=== PATIENT | female | born 1990 | race Caucasian/White ===

== ENCOUNTER 2019-03-20 10:00 | Emergency (ER) | payer MEDICAID ==
[2019-03-20] MEDS ORDERED: Acetaminophen 325 MG Tab PO ONE (10:30)
--- NOTE | 2019-03-20 10:37 | EDM.PDOC ---
ED HPI GENERAL MEDICAL PROBLEM - General Chief Complaint: Headache Time Seen by Provider: 03/20/19 10:15 Source of Information: Reports: Patient History Limitations: Reports: No Limitations - History of Present Illness INITIAL COMMENTS - FREE TEXT/NARRATIVE: Patient is a 28 year old female who presents to the E.D. complaining of mild bi- temporal headache that waxes and wanes in fashion. Headache started last night. States it started after having a intermittent episode of dizziness while sitting with her son. States she was mildly nauseated and became slightly sweaty. States symptoms went away with standing. States short period thereafter developed this mild headache. Denies vision changes, room spinning sensation, or any focal neurologic abnormalities. States she has had intermittent sinus pressure and ear pain. Denies any recent trauma to her head, fever, abdominal pain, stiff neck, or any additional complaints. She is 21 wks preganant and takes vitamins. She has not taken any OTC pain medications. 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 Social & Family History - Tobacco Use Smoking Status *Q: Current Every Day Smoker Years of Tobacco use: 10 Packs/Tins Daily: 0.5 - Caffeine Use Caffeine Use: Reports: Coffee - Recreational Drug Use Recreational Drug Use: No ED ROS GENERAL - Review of Systems Review Of Systems: Comprehensive ROS is negative, except as noted in HPI. - Physical Exam Exam: See Below Exam Limited By: No Limitations General Appearance: Alert, WD/WN, No Apparent Distress Eye Exam: Bilateral Eye: EOMI, Normal Inspection, Nystagmus (None noted), PERRL Ears: Normal External Exam, Normal Canal, Hearing Grossly Normal, Normal TMs Nose: Normal Inspection, Normal Mucosa, No Blood Throat/Mouth: Normal Inspection, Normal Lips, Normal Oropharynx, Normal Voice, No Airway Compromise Head Exam: Atraumatic, Normocephalic Neck: Normal Inspection, Supple, Non-Tender, Full Range of Motion Respiratory/Chest: No Respiratory Distress, Lungs Clear, Normal Breath Sounds, No Accessory Muscle Use, Chest Non-Tender Cardiovascular: Normal Peripheral Pulses, Regular Rate, Rhythm, No Murmur GI/Abdominal: Normal Bowel Sounds, Soft, Non-Tender, Distended Neuro Exam (Abbreviated): Alert, Oriented, CN II-XII Intact, Normal Cognition, Normal Gait, No Motor/Sensory Deficits, Other (No facial droop, slurred speech, tongue deviation, weakness discrepancy upper and lower extremities. Finger to nose and rapid alternating movements are intact. Gait is normal.) Back Exam: Normal Inspection, Full Range of Motion Extremities: Normal Inspection, Normal Range of Motion, Non-Tender, No Pedal Edema Psychiatric: Normal Affect, Normal Mood Skin Exam: Warm, Dry, Intact, Normal Color Course - Vital Signs Last Recorded V/S: Last Vital Signs Temp 97.6 F 03/20/19 10:09 Pulse 84 03/20/19 10:09 Resp 16 03/20/19 10:09 BP 130/82 03/20/19 10:09 Pulse Ox 100 03/20/19 10:09 - Orders/Labs/Meds Meds: Medications Discontinued Medications Generic Name Dose Route Start Last Admin Trade Name Freq PRN Reason Stop Dose Admin Acetaminophen 975 mg 03/20/19 10:30 03/20/19 10:39 Tylenol PO 03/20/19 10:31 975 mg NOW ONE Administration - Re-Assessments/Exams Free Text/Narrative Re-Assessment/Exam: On exam patient is alert and oriented 3 she is pleasant AND appropriate does not appear in distress. Vital signs are stable. Orthostatic vitals were negative. Laying blood pressure 113/67 with a heart rate of 96, sitting blood pressure 125/76 with heart rate 77, standing blood pressure 134/79, heart rate 89. She does have bitemporal headache described as throbbing sensation mild in nature with no vision changes and/or focal neurological deficits. This did come on after experiencing some mild dizziness, nausea, and also diaphoresis. Symptoms completely resolved minus the onset of a headache. 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 She does have some mild pressure to her ears. She denies any sinus congestion, runny nose, postnasal drip or sore throat. There is no chest pain, shortness of breath, abdominal pain, vomiting, dysuria, hematuria, and/or vaginal bleeding. She is 21 weeks . She's had regular follow-up with Dr. Guerra with no concerning findings. She's been eating and drinking as usual. At this point we discussed getting labs and also CT of the head. I do not believe a CT of the head is required at this point. The headache was gradual onset and has not been described as the worst headache of her life. She has no focal neurological deficits. Patient agrees. In addition i do not believe labs are required as well. She has no history of preeclampsia. Vitals are stable. I have ordered Tylenol 975 mg by mouth 1. 03/20/19 11:28 Reassessment, patient sitting upright with lights on in no acute distress. She states that Tylenol has not really improved her headache. States she just wants to go home and go to sleep. She did not sleep well last night and is very tired. She offers no additional complaints. Vitals are stable. She refused any additional treatment options. Return precautions discussed with patient. She will followup with PCP as needed this wk. Discharge instructions as documented. Departure - Departure Time of Disposition: 11:40 Disposition: Home, Self-Care 01 Condition: Good Clinical Impression: Headache in front of head - Discharge Information Instructions: General Headache Without Cause, [id number] Referrals: Teresa Rodriguez MD [Primary Care Provider] - Forms: ED Department Discharge Additional Instructions: Suggest going home and find a dark room to go to sleep and with no distractions. Utilize Tylenol 650 mg 4 times a day for pain. Push the fluids. Follow-up with PCP this week as needed. Return to the ED if you develop any new or worsening symptoms. Sepsis Event Note - Evaluation Sepsis Screening Result: No Definite Risk - Focused Exam Date Exam was Performed: 03/24/19 Time Exam was Performed: 19:48
== END 2019-03-20 12:04 | disposition home or self-care (01) ==
LOC: JD.OBCHECK 10:00 → JD.ED 10:00 → EDSTATUS 10:02 → JD.ED 12:04
DX: R51 Headache (principal); F17.210 Nicotine dependence, cigarettes, uncomplicated; Z88.6 Allergy status to analgesic agent
CPT/HCPCS: 99283; A9270; 99282

== ENCOUNTER 2019-07-12 02:55 | Inpatient (IN) | payer MEDICAID ==
[~2019-07-12 02:55] MED LIST: Bupivacaine 0.25% 10 ML SDV ONE
[2019-07-12] MEDS ORDERED: Sodium Chloride 0.9% 10 ML Syringe FLUSH PRN (03:33)
[2019-07-12] MEDS ORDERED: Oxytocin/Lactated Ringers 10 UNIT/1,000 ML BAG IV SCH (03:45)
[2019-07-12] MEDS: Lactated Ringers 1,000 ML IV SCH ×3 (03:59→06:06)
[2019-07-12] MEDS ORDERED: ePHEDrine 50 MG/ML SDV IVPUSH PRN (04:50)
[2019-07-12] MEDS ORDERED: fentaNYL 100 MCG/2 ML SDV EPIDUR PRN (04:50)
[2019-07-12] MEDS ORDERED: diphenhydrAMINE 50 MG/ML SDV IVPUSH PRN (04:50)
[2019-07-12] MEDS ORDERED: Bupivacaine/fentaNYL/NS 100 ML Bag EPIDUR PRN (04:50)
--- NOTE | 2019-07-12 05:18 | PCM.PREANE ---
Preanesthetic Assessment - Procedure Proposed Procedure: guru - Anesthesia/Transfusion/Family Hx Anesthesia History: Prior Anesthesia Without Reaction Family History of Anesthesia Reaction: No Transfusion History: No Prior Transfusion(s) - Review of Systems General: No Symptoms Pulmonary: No Symptoms Cardiovascular: No Symptoms Gastrointestinal: No Symptoms Neurological: No Symptoms Other: Reports: Anxiety - Physical Assessment Vital Signs: Last Vital Signs Temp 98.5 F 07/12/19 03:11 Pulse 83 07/12/19 03:11 Resp 16 07/12/19 03:11 BP 127/80 07/12/19 03:11 Pulse Ox 100 07/12/19 03:11 Height: 5 ft 3 in Weight: 76.204 kg ASA Class: 2 Mental Status: Alert & Oriented x3 Airway Class: Mallampati = 1 Dentition: Reports: Normal Dentition Thyro-Mental Finger Breadths: 3 Mouth Opening Finger Breadths: 3 ROM/Head Extension: Full Lungs: Clear to Auscultation, Normal Respiratory Effort Cardiovascular: Regular Rate, Regular Rhythm, No Murmurs - Lab Values: Laboratory Last Values WBC 12.26 K/mm3 (3.98-10.04) H 07/12/19 03:48 RBC 3.86 M/mm3 (3.98-5.22) L 07/12/19 03:48 Hgb 12.6 gm/dl (11.2-15.7) 07/12/19 03:48 Hct 37.5 % (34.1-44.9) 07/12/19 03:48 MCV 97.2 fl (79.4-94.8) H 07/12/19 03:48 MCH 32.6 pg (25.6-32.2) H 07/12/19 03:48 MCHC 33.6 g/dl (32.2-35.5) 07/12/19 03:48 RDW Std Deviation 45.1 fL (36.4-46.3) 07/12/19 03:48 Plt Count 348 K/mm3 (182-369) 07/12/19 03:48 MPV 9.8 fl (9.4-12.3) 07/12/19 03:48 Neut % (Auto) 67.8 % (34.0-71.1) 07/12/19 03:48 Lymph % (Auto) 24.0 % (19.3-51.7) 07/12/19 03:48 Stone % (Auto) 6.2 % (4.7-12.5) 07/12/19 03:48 Eos % (Auto) 1.6 (0.7-5.8) 07/12/19 03:48 Baso % (Auto) 0.2 % (0.1-1.2) 07/12/19 03:48 Neut # (Auto) 8.31 K/mm3 (1.56-6.13) H 07/12/19 03:48 Lymph # (Auto) 2.94 K/mm3 (1.18-3.74) 07/12/19 03:48 Stone # (Auto) 0.76 K/mm3 (0.24-0.36) H 07/12/19 03:48 Eos # (Auto) 0.20 K/mm3 (0.04-0.36) 07/12/19 03:48 Baso # (Auto) 0.02 K/mm3 (0.01-0.08) 07/12/19 03:48 - Allergies Allergies/Adverse Reactions: Allergies Allergy/AdvReac Type Severity Reaction Status Date / Time acetaminophen [From Vicodin] Allergy Hives Verified 07/12/19 03:11 hydrocodone [From Vicodin] Allergy Hives Verified 07/12/19 03:11 - Blood Blood Available: No - Acknowledgements Anesthesia Type Planned: Epidural Pt an Appropriate Candidate for the Planned Anesthesia: Yes Alternatives and Risks of Anesthesia Discussed w Pt/Guardian: Yes Pt/Guardian Understands and Agrees with Anesthesia Plan: Yes PreAnesthesia Questionnaire Cardiovascular History: Reports: None Respiratory History: Reports: None Gastrointestinal History: Reports: GERD 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, Musculoskeletal History: Reports: None Neurological History: Reports: None Psychiatric History: Reports: Anxiety Endocrine/Metabolic History: Reports: None Hematologic History: Reports: None Immunologic History: Reports: None Oncologic (Cancer) History: Reports: None Dermatologic History: Reports: None - Infectious Disease History Infectious Disease History: Reports: Chicken Pox - Past Surgical History HEENT Surgical History: Reports: Oral Surgery Female Surgical History: Reports: Other (See Below) Other Female Surgeries/Procedures: Pt had laparoscopic procedure to remove cyst on left fallopian tube. - SUBSTANCE USE Smoking Status *Q: Current Every Day Smoker Tobacco Use Within Last Twelve Months: Cigarettes Second Hand Smoke Exposure: Yes Days Per Week of Alcohol Use: 0 Recreational Drug Use History: No - HOME MEDS Home Medications: Home Meds Prenat 115/Iron Fum/Folic/Dss [ 19 Tablet] 1 each PO DAILY 03/20/19 [ History] Citalopram Hydrobromide [Celexa] 20 mg PO 07/12/19 [History] Omeprazole 20 mg PO 07/12/19 [History] - CURRENT (IN HOUSE) MEDS Current Meds: Current Medications Diphenhydramine HCl (Benadryl) 25 mg IVPUSH Q6H PRN PRN Reason: pruritis Ephedrine Sulfate (Ephedrine Sulfate) 5 mg IVPUSH ASDIRECTED PRN PRN Reason: Hypotension Fentanyl (Sublimaze) 100 mcg EPIDUR Q3H PRN PRN Reason: Pain Last Admin: 07/12/19 05:01 Dose: 100 mcg Fentanyl/Bupivacaine HCl (Fentanyl/Bupivacaine/Ns 2 Mcg-0.125% 100 Ml) 100 ml EPIDUR ASDIRECTED PRN PRN Reason: Pain Last Admin: 07/12/19 05:02 Dose: 100 ml Lactated Ringer's (Ringers, Lactated) 1,000 mls @ 100 mls/hr IV ASDIRECTED RADHA Last Admin: 07/12/19 04:40 Dose: 999 mls/hr Oxytocin/Lactated Ringer's (Pitocin In Lr 10 Units/1,000 Ml) 10 unit in 1,000 mls @ 500 mls/hr IV .CONTINUOUS RADHA Sodium Chloride (Saline Flush) 10 ml FLUSH ASDIRECTED PRN PRN Reason: Keep Vein Open
--- NOTE | 2019-07-12 07:17 | PCM.LDHP ---
L&D History of Present Illness - General Date of Service: 07/12/19 Admit Problem/Dx: Patient Status Order with Admit Dx/Problem 07/12/19 03:34 Patient Status [ADT] Routine Admission Diagnosis/Problem Admission Diagnosis/Problem Source of Information: Patient History Limitations: Reports: No Limitations - History of Present Illness Introduction:: Patient is a 29 y/o at 37 4/7 wks who presented in early AM in labor. When first presented was 4 cm. Now comfortable with epidural. Had SROM about an hour ago and was noted to be 6 cm dilated. 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, : 3 Para: 2 LMP (Approximate): Psychiatric History: Reports: Anxiety - Past Surgical History HEENT Surgical History: Reports: Oral Surgery Female Surgical History: Reports: Cystectomy (left) Social & Family History - Tobacco Use Smoking Status *Q: Current Every Day Smoker Years of Tobacco use: 10 Packs/Tins Daily: 0.2 Second Hand Smoke Exposure: Yes - Caffeine Use Caffeine Use: Reports: None - Alcohol Use Alcohol Use History: No Days Per Week of Alcohol Use: 0 - Recreational Drug Use Recreational Drug Use: No H&P Review of Systems - Review of Systems: Review Of Systems: See Below General: Reports: No Symptoms Pulmonary: Reports: No Symptoms Cardiovascular: Reports: No Symptoms Gastrointestinal: Reports: No Symptoms Genitourinary: Reports: No Symptoms Musculoskeletal: Reports: No Symptoms Psychiatric: Reports: No Symptoms Neurological: Reports: No Symptoms L&D Exam - Exam Exam: See Below - Vital Signs Vital Signs: Last Vital Signs Temp 36.9 C 07/12/19 03:11 Pulse 83 07/12/19 03:11 Resp 16 07/12/19 03:11 BP 127/80 07/12/19 03:11 Pulse Ox 100 07/12/19 03:11 Weight: 76.204 kg - OB Specific Contraction Intensity: Moderate to Strong Movement: Active Heart Tones: Present Heart Tones per Min: 130 Heart Rate (FHR) Variability: Moderate (6-25 bmp) Presentation: Vertex - Exam General: Alert, Oriented, Cooperative Lungs: Clear to Auscultation, Normal Respiratory Effort Cardiovascular: Regular Rate, Regular Rhythm GI/Abdominal Exam: Soft, Non-Tender Genitourinary: Normal external exam Extremities: Normal Inspection Skin: Warm, Dry, Intact - Patient Data Lab Results Last 24 hrs: Laboratory Results - last 24 hr 07/12/19 Range/Units 03:48 WBC 12.26 H (3.98-10.04) K/mm3 RBC 3.86 L (3.98-5.22) M/mm3 Hgb 12.6 (11.2-15.7) gm/dl Hct 37.5 (34.1-44.9) % MCV 97.2 H (79.4-94.8) fl MCH 32.6 H (25.6-32.2) pg MCHC 33.6 (32.2-35.5) g/dl RDW Std Deviation 45.1 (36.4-46.3) fL Plt Count 348 (182-369) K/mm3 MPV 9.8 (9.4-12.3) fl Neut % (Auto) 67.8 (34.0-71.1) % Lymph % (Auto) 24.0 (19.3-51.7) % Harrison % (Auto) 6.2 (4.7-12.5) % Eos % (Auto) 1.6 (0.7-5.8) Baso % (Auto) 0.2 (0.1-1.2) % Neut # (Auto) 8.31 H (1.56-6.13) K/mm3 Lymph # (Auto) 2.94 (1.18-3.74) K/mm3 Harrison # (Auto) 0.76 H (0.24-0.36) K/mm3 Eos # (Auto) 0.20 (0.04-0.36) K/mm3 Baso # (Auto) 0.02 (0.01-0.08) K/mm3 Result Diagrams: 07/12/19 03:48 - Problem List (1) 37 weeks gestation of SNOMED Code(s): 61588164 ICD Code: Z3A.37 - 37 WEEKS GESTATION OF Status: Acute Current Visit: Yes (2) Normal labor SNOMED Code(s): 18558336 ICD Code: O80 - ENCOUNTER FOR FULL-TERM UNCOMPLICATED DELIVERY; Z37.9 - OUTCOME OF DELIVERY, UNSPECIFIED Status: Acute Current Visit: Yes Problem List Initiated/Reviewed/Updated: Yes Orders Last 24hrs: Active Orders 24 hr Category Date Time Status Patient Status [ADT] Routine ADT 07/12/19 03:34 Active Activity as Tolerated [RC] PFP Care 07/12/19 03:34 Active Communication Order [RC] ASDIRECTED Care 07/12/19 03:34 Active Heart Tones [RC] ASDIRECTED Care 07/12/19 03:34 Active Non Stress Test [RC] PER UNIT ROUTINE Care 07/12/19 03:34 Active Notify Provider [RC] ASDIRECTED Care 07/12/19 04:50 Active Notify Provider [RC] PFP Care 07/12/19 03:34 Active Notify Provider [RC] PRN Care 07/12/19 03:34 Active Peripheral IV Care [RC] . DIRECTED Care 07/12/19 03:34 Active Urinary Catheter Assessment [RC] ASDIRECTED Care 07/12/19 05:32 Active Urinary Catheter Insertion [Insert Urinary Catheter] [ Care 07/12/19 05:45 Ordered OM.PC] Q24H Vital Signs [RC] PER UNIT ROUTINE Care 07/12/19 03:34 Active Regular Diet [DIET] Diet 07/12/19 Breakfast Active BLOOD BANK HOLD SPECIMEN [BBK] Routine Lab 07/12/19 03:33 Ordered RAPID PLASMA REAGIN,RPR [CHEM] Routine Lab 07/12/19 03:48 Received Bupivacaine/fentaNYL/NS [fentaNYL/Bupivacaine/NS 2 MCG- Med 07/12/19 04:50 Active 0.125% 100 ML] 100 ml EPIDUR ASDIRECTED PRN Lactated Ringers [Ringers, Lactated] 1,000 ml Med 07/12/19 03:45 Active IV ASDIRECTED Oxytocin/Lactated Ringers [Pitocin in LR 10 Units/1,000 Med 07/12/19 03:45 Active ML] 10 unit in 1,000 ml IV .CONTINUOUS Sodium Chloride 0.9% [Saline Flush] Med 07/12/19 03:33 Active 10 ml FLUSH ASDIRECTED PRN diphenhydrAMINE [Benadryl] Med 07/12/19 04:50 Active 25 mg IVPUSH Q6H PRN ePHEDrine [ePHEDrine sulfate] Med 07/12/19 04:50 Active 5 mg IVPUSH ASDIRECTED PRN fentaNYL [Sublimaze] Med 07/12/19 04:50 Active 100 mcg EPIDUR Q3H PRN Electronic Heart Tones Ext w TOCO [WOMSER] Oth 07/12/19 03:34 Ordered Routine Electronic Heart Tones Internal [WOMSER] Per Unit Oth 07/12/19 03:34 Ordered Routine Peripheral IV Insertion Adult [OM.PC] Routine Oth 07/12/19 03:34 Ordered Resuscitation Status Routine Resus Stat 07/12/19 03:33 Ordered Medication Orders Diphenhydramine HCl (Benadryl) 25 mg IVPUSH Q6H PRN PRN Reason: pruritis Ephedrine Sulfate (Ephedrine Sulfate) 5 mg IVPUSH ASDIRECTED PRN PRN Reason: Hypotension Fentanyl (Sublimaze) 100 mcg EPIDUR Q3H PRN PRN Reason: Pain Last Admin: 07/12/19 05:01 Dose: 100 mcg Fentanyl/Bupivacaine HCl (Fentanyl/Bupivacaine/Ns 2 Mcg-0.125% 100 Ml) 100 ml EPIDUR ASDIRECTED PRN PRN Reason: Pain Last Admin: 07/12/19 05:02 Dose: 100 ml Lactated Ringer's (Ringers, Lactated) 1,000 mls @ 100 mls/hr IV ASDIRECTED RADHA Last Admin: 07/12/19 06:06 Dose: 100 mls/hr Infusion: 07/12/19 06:06 Dose: 100 mls/hr Infusion: 07/12/19 05:33 Dose: 100 mls/hr Admin: 07/12/19 04:40 Dose: 999 mls/hr Infusion: 07/12/19 04:40 Dose: 999 mls/hr Admin: 07/12/19 03:59 Dose: 999 mls/hr Oxytocin/Lactated Ringer's (Pitocin In Lr 10 Units/1,000 Ml) 10 unit in 1,000 mls @ 500 mls/hr IV .CONTINUOUS RADHA Sodium Chloride (Saline Flush) 10 ml FLUSH ASDIRECTED PRN PRN Reason: Keep Vein Open Assessment/Plan Comment:: * Labs done and normal * GBS negative * Comfortable with epidural in place * Anticipate
--- NOTE | 2019-07-12 08:28 | PCM.DEL ---
L & D Note - General Info Date of Service: 07/12/19 - Delivery Note Labor: Spontaneous Delivery Outcome: Livebirth Delivery Method: Spontaneous Vaginal Delivery-Single Delivery Mode: Spontaneous Presentation: Right Occiput Anterior (YIFAN) Nuchal Cord: None Anesthesia Type: Epidural Amniotic Fluid Description: Clear Episiotomy Type: None Laceration: None Placenta: Intact, Spontaneous Cord: 3 Vessels Estimated Blood Loss: 100 Resuscitation Needed: Yes Hodge: Bulb Syringe, Stimulated, Warmed, [place] Used, Warmer Used Delivery Comments (Free Text/Narrative):: Patient found to be complete and began pushing. With maternal pushing effort head delivered from an YIFAN presentation. No nuchal cord present. With gentle downward traction the shoulders and body delivered. Infant placed on maternal abdomen. Cord clamped and cut. Cord blood obtained. Placenta allowed time to separate and expelled intact. Inspection of the perineum showed no lacerations - General Info Date of Service: 07/12/19 - Patient Data Vitals - Most Recent: Last Vital Signs Temp 36.9 C 07/12/19 03:11 Pulse 83 07/12/19 03:11 Resp 16 07/12/19 03:11 BP 127/80 07/12/19 03:11 Pulse Ox 100 07/12/19 03:11 Weight - Most Recent: 76.204 kg I&O - Last 24 Hours: Intake & Output 07/11/19 07/12/19 07/12/19 22:59 06:59 14:59 Intake Total 1999 Balance 1999 - Problem List & Annotations (1) Vaginal delivery SNOMED Code(s): 151861986 Code(s): O80 - ENCOUNTER FOR FULL-TERM UNCOMPLICATED DELIVERY Status: Acute Current Visit: Yes (2) 37 weeks gestation of SNOMED Code(s): 27913871 Code(s): Z3A.37 - 37 WEEKS GESTATION OF Status: Acute Current Visit: Yes (3) Normal labor SNOMED Code(s): 59199509 Code(s): O80 - ENCOUNTER FOR FULL-TERM UNCOMPLICATED DELIVERY; Z37.9 - OUTCOME OF DELIVERY, UNSPECIFIED Status: Acute Current Visit: Yes - Problem List Review Problem List Initiated/Reviewed/Updated: Yes - My Orders Last 24 Hours: My Active Orders 07/12/19 03:33 BLOOD BANK HOLD SPECIMEN [BBK] Routine Sodium Chloride 0.9% [Saline Flush] 10 ml FLUSH ASDIRECTED PRN Resuscitation Status Routine 07/12/19 03:34 Patient Status [ADT] Routine Activity as Tolerated [RC] PFP Communication Order [RC] ASDIRECTED Heart Tones [RC] ASDIRECTED Non Stress Test [RC] PER UNIT ROUTINE Notify Provider [RC] PFP Notify Provider [RC] PRN Peripheral IV Care [RC] . DIRECTED Vital Signs [RC] PER UNIT ROUTINE Electronic Heart Tones Ext w TOCO [WOMSER] Routine Electronic Heart Tones Internal [WOMSER] Per Unit Routine Peripheral IV Insertion Adult [OM.PC] Routine 07/12/19 03:45 Lactated Ringers [Ringers, Lactated] 1,000 ml IV ASDIRECTED Oxytocin/Lactated Ringers [Pitocin in LR 10 Units/1,000 ML] 10 unit in 1,000 ml IV .CONTINUOUS 07/12/19 03:48 RAPID PLASMA REAGIN,RPR [CHEM] Routine 07/12/19 05:32 Urinary Catheter Assessment [RC] ASDIRECTED 07/12/19 05:45 Urinary Catheter Insertion [Insert Urinary Catheter] [OM.PC] Q24H 07/12/19 08:23 Patient Status Manage Transfer [TRANSFER] Routine 07/12/19 08:30 Citalopram Hydrobromide [Celexa] DOSE UNIT RTE FREQ 07/12/19 Breakfast Regular Diet [DIET] - Assessment Assessment:: PPD#0 - Plan Plan:: * Routine cares * Bottle feeding * Discharge home in 1-2 days
[2019-07-12] MEDS ORDERED: Benzocaine/Menthol 20%-0.5% Spray 56 GM Canister TOP PRN (09:01)
[2019-07-12] MEDS ORDERED: Witch Hazel Medicated Pads 40/Jar TOP PRN (09:01)
[2019-07-12] MEDS ORDERED: Docusate Sodium 100 MG Cap PO PRN (09:01)
[2019-07-12] MEDS: Ibuprofen 600 MG Tab PO PRN ×2 (14:54→21:02)
[2019-07-12] MEDS: Acetaminophen 325 MG Tab PO PRN (18:39)
[2019-07-12] MEDS ORDERED: Calcium Carbonate 500 MG Tab.Chew PO PRN (20:51)
[2019-07-13] MEDS: Ibuprofen 600 MG Tab PO PRN (04:30)
--- NOTE | 2019-07-13 07:35 | PCM.DCSUM1 ---
Discharge Summary - Hospital Course Free Text/Narrative:: Anil 29-year-old 3 now para 3003 white female is admitted early on at 37-4/7 weeks gestational age in active labor. She progressed quickly , had spontaneous rupture membranes with resultant clear amniotic fluid. A viable conner without problems. patient is doing well. She is voiding well, ambulating without concerns . She is desiring discharge home. Diagnosis: Stroke: No - Discharge Data Discharge Date: 07/13/19 Discharge Disposition: Home, Self-Care 01 Condition: Good - Referral to Home Health Primary Care Physician: Teresa Rodriguez MD - Patient Instructions Diet: Regular Diet as Tolerated Activity: As Tolerated (No intercourse or tampons still bleeding resolves) Driving: May Drive Today Showering/Bathing: May Shower (May take a bath) Notify Provider of: Fever, Increased Pain, Swelling and Redness, Nausea and/or Vomiting - Discharge Plan Home Medications: Home Meds Prenat 115/Iron Fum/Folic/Dss [ 19 Tablet] 1 each PO DAILY 03/20/19 [ History] Citalopram Hydrobromide [Celexa] 20 mg PO 07/12/19 [History] Acetaminophen [Tylenol] 650 mg PO Q4H PRN tablet 07/13/19 [Rx] Ibuprofen [Motrin] 600 mg PO Q6H PRN tablet 07/13/19 [Rx] Patient Handouts: Steps to Quit Smoking Referrals: Teresa Rodriguez MD [Primary Care Provider] - (The patient is to call [facility] for an appointment for follow-up.) - Discharge Summary/Plan Comment DC Time >30 min.: No Discharge Summary/Plan Comment: Discharge instructions: 1. Discharge home 2. Diet, activity and follow-up discussed with patient. 3. Precautions given concern increased pain, bleeding, temperature, signs/ symptoms of DVT/PE. 4. Medications per home medication was printed, discussed with and given to the patient. 5. Patient is to call [facility] for follow-up appointment with Dr. Rodriguez. Diagnosis: Term -delivered Condition: Good - Patient Data Vitals - Most Recent: Last Vital Signs Temp 36.4 C 07/13/19 05:00 Pulse 71 07/13/19 05:00 Resp 15 07/13/19 05:00 BP 110/69 07/13/19 05:00 Pulse Ox 100 07/13/19 05:00 Weight - Most Recent: 76.204 kg Lab Results - Last 24 hrs: Laboratory Results - last 24 hr 07/12/19 Range/Units 03:48 RPR Non-reactive (NONREACTIVE) Med Orders - Current: Current Medications Acetaminophen (Tylenol) 650 mg PO Q4H PRN PRN Reason: mild pain or fever Last Admin: 07/12/19 18:39 Dose: 650 mg Benzocaine/Menthol (Dermoplast Pain Relief [place]) 0 gm TOP ASDIRECTED PRN PRN Reason: Perineal Comfort Measure Calcium Carbonate/Glycine (Tums) 1,000 mg PO Q2HR PRN PRN Reason: Indigestion Last Admin: 07/12/19 21:27 Dose: 1,000 mg Docusate Sodium (Colace) 100 mg PO BID PRN PRN Reason: Constipation Ibuprofen (Motrin) 600 mg PO Q6H PRN PRN Reason: Mild pain or fever Last Admin: 07/13/19 04:30 Dose: 600 mg Witch [place] (Tucks) 1 pad TOP ASDIRECTED PRN PRN Reason: Perineal Comfort Measure Discontinued Medications Bupivacaine HCl (Sensorcaine-Mpf 0.25%) 10 ml .ROUTE .STK-MED ONE Stop: 07/12/19 00:01 Diphenhydramine HCl (Benadryl) 25 mg IVPUSH Q6H PRN PRN Reason: pruritis Ephedrine Sulfate (Ephedrine Sulfate) 5 mg IVPUSH ASDIRECTED PRN PRN Reason: Hypotension Fentanyl (Sublimaze) 100 mcg EPIDUR Q3H PRN PRN Reason: Pain Last Admin: 07/12/19 05:01 Dose: 100 mcg Fentanyl/Bupivacaine HCl (Fentanyl/Bupivacaine/Ns 2 Mcg-0.125% 100 Ml) 100 ml EPIDUR ASDIRECTED PRN PRN Reason: Pain Last Admin: 07/12/19 05:02 Dose: 100 ml Lactated Ringer's (Ringers, Lactated) 1,000 mls @ 100 mls/hr IV ASDIRECTED RADHA Last Admin: 07/12/19 06:06 Dose: 100 mls/hr Oxytocin/Lactated Ringer's (Pitocin In Lr 10 Units/1,000 Ml) 10 unit in 1,000 mls @ 500 mls/hr IV .CONTINUOUS RADHA Last Admin: 07/12/19 08:06 Dose: 500 mls/hr Sodium Chloride (Saline Flush) 10 ml FLUSH ASDIRECTED PRN PRN Reason: Keep Vein Open
[2019-07-13] MEDS: Acetaminophen 325 MG Tab PO PRN (08:10)
--- NOTE | 2019-07-13 13:39 | PCM48HPAN ---
Post Anesthesia Note - EVALUATION WITHIN 48HRS OF ANESTHETIC Vital Signs in Normal Range: Yes Patient Participated in Evaluation: Yes Respiratory Function Stable: Yes Airway Patent: Yes Cardiovascular Function Stable: Yes Hydration Status Stable: Yes Pain Control Satisfactory: Yes Nausea and Vomiting Control Satisfactory: Yes Mental Status Recovered: Yes Vital Signs: Last Vital Signs Temp 97.8 F 07/13/19 09:00 Pulse 64 07/13/19 09:00 Resp 14 07/13/19 09:00 BP 123/70 07/13/19 09:00 Pulse Ox 99 07/13/19 09:00 - COMMENTS/OBSERVATIONS Free Text/Narrative:: Patient is on her day 1. Stated understanding about possible backaches following epidural anesthesia. Mentions having some minor back soreness at this time. Patient also reported having an topical reaction to the tape, used to secure epidural dressing, but it has already subsided. Explanation given about importance of avoiding back straining. Denies any headache or lightheadedness at this time. Comfortable now. Ambulating, no difficulty urinating.
== END 2019-07-13 10:40 | disposition home or self-care (01) | DRG 807 ==
LOC: JD.OBCHECK 02:55 → JD.OB 03:41 → OBSVTOIN 08:05 → JD.OB 08:06 → JD.MS 08:06
PROVIDERS: ADMIT Obstetrics & Gynecology; ATTEND Obstetrics & Gynecology
PROC: 10E0XZZ Delivery of Products of Conception, External Approach (ICD-10-PCS; principal; 2019-07-12)
PROC: 3E0R3BZ Introduction of Anesthetic Agent into Spinal Canal, Percutaneous Approach (ICD-10-PCS; 2019-07-12)
DX: O99.62 Diseases of the digestive system complicating childbirth (principal); Z37.0 Single live birth; K21.9 Gastro-esophageal reflux disease without esophagitis; O99.344 Other mental disorders complicating childbirth; Z3A.37 37 weeks gestation of pregnancy; F41.9 Anxiety disorder, unspecified; O99.334 Smoking (tobacco) complicating childbirth; F17.200 Nicotine dependence, unspecified, uncomplicated
CPT/HCPCS: 36415; 51702; 59025; 59409; 85025; 86592; A9270-GY; J2590; J3010; J3490; J7120

== ENCOUNTER 2024-06-06 10:53 | Emergency (ER) | payer MEDICAID ==
[2024-06-06 11:42] LABS: BASOPHILS PERCENT AUTO 0.3 % (0.0-1.0); EOSINOPHILS ABSOLUTE AUTO 0.1 K/mm3 (0.0-0.4); EOSINOPHILS PERCENT AUTO 1.5 % (0.0-6.0); HEMATOCRIT 42.9 % (37.0-47.0); HEMOGLOBIN 13.9 gm/dl (12.0-16.0); IMMATURE GRAN ABSOLUTE AUTO 0.01 K/mm3 (0.00-0.05); IMMATURE GRAN PERCENT AUTO 0.2 % (0.0-0.4); LYMPHOCYTES ABSOLUTE AUTO 2.5 K/mm3 (1.0-4.8); MEAN CORPUSCULAR HEMOGLOBIN 30.3 pg (28.0-32.0); MEAN CORPUSCULAR HGB CONC 32.4 g/dl (32.0-36.0); MEAN CORPUSCULAR VOLUME 93.5 fl (83.0-99.0); MEAN PLATELET VOLUME 10.2 fl (9.4-12.3); MONOCYTES ABSOLUTE AUTO 0.3 K/mm3 (0.0-0.8); MONOCYTES PERCENT AUTO 4.3 % (0.0-8.0); NEUTROPHILS PERCENT AUTO 50.7 % (41.0-71.0); PLATELET COUNT,PLT 336 K/mm3 (150-400); RED BLOOD CELL COUNT 4.59 M/mm3 (4.10-5.30); WHITE BLOOD CELL COUNT,WBC 5.86 K/mm3 (3.9-11.3)
[2024-06-06] MEDS: Sodium Chloride 0.9% 1,000 ML IV ONE (12:10)
[2024-06-06 12:13] LABS: A/G RATIO 1.4 (1-2); ALBUMIN 4.2 g/dl (3.4-5.0); ANION GAP 11.5 (5-15); BILIRUBIN TOTAL 0.4 mg/dL (0.2-1.0); CALCIUM 8.8 mg/dL (8.5-10.1); EST CRCL DRUG DOSING (CG) 62.69 mL/min; MAGNESIUM 1.8 mg/dL (1.8-2.4); POTASSIUM,K 3.5 mEq/L (3.5-5.1); PROTEIN TOTAL,TP 7.3 g/dl (6.4-8.2)
== END 2024-06-06 14:18 | disposition home or self-care (01) ==
LOC: JD.ED 10:53
DX: R42 Dizziness and giddiness (principal); Z88.8 Allergy status to other drugs, medicaments and biological substances; Z79.899 Other long term (current) drug therapy
CPT/HCPCS: 36415; 80053; 83735; 84484; 85025; 93005; 96360; 99284; J7030